=== PATIENT | female | born 1995 | race Caucasian/White ===

== ENCOUNTER 2020-07-05 12:18 | Emergency (ER) | payer OTHER ==
[2020-07-05 12:44] VITALS: BP 109/58; PULSE 88; TEMP 98.1; BMI 27.3
[2020-07-05 13:35] LABS: URINE APPEARANCE CLEAR; URINE BILIRUBIN NEGATIVE (NEGATIVE); URINE COLOR YELLOW; URINE GLUCOSE (UA) NEGATIVE (NEGATIVE); URINE KETONE NEGATIVE (NEGATIVE); URINE LEUK ESTERASE NEGATIVE (NEGATIVE); URINE NITRITE NEGATIVE (NEGATIVE); URINE PROTEIN NEGATIVE (NEGATIVE); URINE UROBILINOGEN 0.2 mg/dL (0.2-1.0)
[2020-07-05 13:57] LABS: BASO % 0.8 % (0-2.0); HEMATOCRIT 35.2 % (32.4-45.2); LYMPH % 26.4 % (8-40); MCH 33.6 pg (25.7-33.7); MCHC 34.1 g/dl (32.0-36.0); MEAN CELL VOLUME 98.4 fl (80-96); MEAN PLT VOLUME 8.4 fl (7.5-11.1); MONO % 7.9 % (3.8-10.2); NEUT % 62.9 % (42.8-82.8); PLATELET COUNT 254 K/MM3 (134-434); RBC 3.57 M/mm3 (3.60-5.2); RDW 13.2 % (11.6-15.6); WHITE BLOOD COUNT 12.9 K/mm3 (4.0-10.0)
[2020-07-05 14:30] LABS: BLOOD UREA NITROGEN 9.6 mg/dL (7-18); CALCIUM 8.3 mg/dL (8.5-10.1)
[2020-07-05 14:31] LABS: ALBUMIN 3.6 g/dl (3.4-5.0)
[2020-07-05 14:34] LABS: CREATININE 0.4 mg/dL (0.55-1.3)
[2020-07-05 14:35] LABS: BILIRUBIN,TOTAL 0.2 mg/dL (0.2-1)
[2020-07-05 14:36] LABS: TOT PROT 6.4 g/dl (6.4-8.2)
== END 2020-07-05 15:59 | disposition home or self-care (01) ==
LOC: JER 12:18
DX: O20.0 Threatened abortion (principal); O26.851 Spotting complicating pregnancy, first trimester; O41.8X10 Other specified disorders of amniotic fluid and membranes, first trimester, not applicable or unspecified; Z3A.01 Less than 8 weeks gestation of pregnancy
CPT/HCPCS: 36415; 76817-TC; 80053; 81003; 84702; 85025; 86850; 86900; 86901; 87086; 99284-25

== ENCOUNTER 2020-08-07 05:02 | Emergency (ER) | payer OTHER ==
[2020-08-07 05:12] VITALS: TEMP 98.8; BMI 26.4
[2020-08-07] MEDS ORDERED: KETOROLAC TROMETHAMINE 30 MG/1 ML VIAL IVPUSH ONE (05:50)
[2020-08-07] MEDS ORDERED: KETOROLAC TROMETHAMINE 30 MG/1 ML VIAL ONE (05:53)
[2020-08-07 06:12] LABS: BASO % 0.3 % (0-2.0); HEMATOCRIT 36.5 % (32.4-45.2); HEMOGLOBIN 12.3 GM/dL (10.7-15.3); LYMPH % 13.2 % (8-40); MCH 32.4 pg (25.7-33.7); MCHC 33.6 g/dl (32.0-36.0); MEAN CELL VOLUME 96.4 fl (80-96); MONO % 5.6 % (3.8-10.2); NEUT % 79.9 % (42.8-82.8); PLATELET COUNT 244 10^3/uL (134-434); RBC 3.79 M/mm3 (3.60-5.2); RDW 13.1 % (11.6-15.6); WHITE BLOOD COUNT 18.8 K/mm3 (4.0-10.0)
[2020-08-07 06:33] LABS: CALCIUM 8.3 mg/dL (8.5-10.1)
[2020-08-07 06:34] LABS: ALBUMIN 3.7 g/dl (3.4-5.0); BLOOD UREA NITROGEN 9.2 mg/dL (7-18)
[2020-08-07 06:37] LABS: CREATININE 0.5 mg/dL (0.55-1.3)
[2020-08-07 06:39] LABS: BILIRUBIN,TOTAL 0.2 mg/dL (0.2-1); TOT PROT 6.6 g/dl (6.4-8.2)
[2020-08-07] MEDS ORDERED: ACETAMINOPHEN 325 MG TABLET (FP) PO ONE (06:44)
[2020-08-07] MEDS ORDERED: ACETAMINOPHEN 325 MG TABLET (FP) ONE (06:48)
[2020-08-07] MEDS ORDERED: SODIUM CHLORIDE 1,000 ML IV STA (07:16)
[2020-08-07] MEDS ORDERED: morphine CARPU-JECT 2 MG/1 ML DISP.SYRIN IVPUSH ONE (09:24)
[2020-08-07 09:26] LABS: EPI CELLS 17 /uL (0-25.1); HYALINE CASTS 3 /uL (0-3.1); PH,URINE 5.5 (5.0-8.0); URINE APPEARANCE CLEAR; URINE BACTERIA 81 /uL (0-1359); URINE BILIRUBIN NEGATIVE (NEGATIVE); URINE COLOR YELLOW; URINE GLUCOSE (UA) NEGATIVE (NEGATIVE); URINE KETONE NEGATIVE (NEGATIVE); URINE LEUK ESTERASE NEGATIVE (NEGATIVE); URINE NITRITE NEGATIVE (NEGATIVE); URINE PROTEIN TRACE (NEGATIVE); URINE RBC 122 /uL (0-23.9); URINE UROBILINOGEN 0.2 mg/dL (0.2-1.0); URINE WBC 4 /uL (0-25.8)
[2020-08-07] MEDS ORDERED: MORPHINE SULFATE 2 MG/ML VIAL ONE (09:27)
[2020-08-07] MEDS ORDERED: ONDANSETRON 4 MG/2 ML VIAL ONE (09:40)
[2020-08-07] MEDS ORDERED: ONDANSETRON 4 MG/2 ML VIAL IVPUSH ONE (09:40)
[2020-08-07 10:34] LABS: BASO % 0.2 % (0-2.0); HEMATOCRIT 36.2 % (32.4-45.2); LYMPH % 5.2 % (8-40); MCH 32.5 pg (25.7-33.7); MEAN CELL VOLUME 98.2 fl (80-96); MEAN PLT VOLUME 7.9 fl (7.5-11.1); MONO % 2.4 % (3.8-10.2); NEUT % 92.2 % (42.8-82.8); PLATELET COUNT 213 10^3/uL (134-434); RBC 3.69 M/mm3 (3.60-5.2); RDW 13.6 % (11.6-15.6); WHITE BLOOD COUNT 17.9 K/mm3 (4.0-10.0)
[2020-08-07 11:01] LABS: ANISOCYTOSIS 1+; MACROCYTOSIS 1+; PLATELET ESTIMATE NORMAL
[2020-08-07 12:09] VITALS: BP 107/71; PULSE 66
[2020-08-07] MEDS ORDERED: ACETAMINOPHEN WITH CODEINE 300MG/30MG TABLET PO ONE (12:18)
[2020-08-07] MEDS ORDERED: ACETAMINOPHEN WITH CODEINE 300MG/30MG TABLET ONE (12:31)
== END 2020-08-07 12:43 ==
LOC: JER 05:02
PROC: 3E0333Z Introduction of Anti-inflammatory into Peripheral Vein, Percutaneous Approach (ICD-10-PCS; principal; 2020-08-07)
PROC: 3E033NZ Introduction of Analgesics, Hypnotics, Sedatives into Peripheral Vein, Percutaneous Approach (ICD-10-PCS; 2020-08-07)
PROC: 3E033GC Introduction of Other Therapeutic Substance into Peripheral Vein, Percutaneous Approach (ICD-10-PCS; 2020-08-07)
PROC: 3E0337Z Introduction of Electrolytic and Water Balance Substance into Peripheral Vein, Percutaneous Approach (ICD-10-PCS; 2020-08-07)
DX: O04.80 (Induced) termination of pregnancy with unspecified complications (principal)
CPT/HCPCS: 36415; 76830-TC; 80053; 81003; 84702; 85025; 86850; 86900; 86901; 87086; 99284-25

== ENCOUNTER 2023-03-29 03:55 | Day surgery (SDC) | payer OTHER ==
[2023-03-25 15:32] VITALS: BMI 27.9
[2023-03-29] MEDS ORDERED: IBUPROFEN 400 MG TABLET (FP) PO PRN (06:41)
[2023-03-29] MEDS ORDERED: oxyCODONE HCL 5 MG TABLET PO PRN ×2 (06:41→12:21)
[2023-03-29] MEDS ORDERED: ACETAMINOPHEN 325 MG TABLET (FP) PO PRN (06:41)
[2023-03-29] MEDS ORDERED: MIDAZOLAM HCL 2 MG/2 ML SINGLE DOSE VIAL ONE (11:09)
[2023-03-29] MEDS ORDERED: PROPOFOL 20 ML ONE (11:09)
[2023-03-29] MEDS ORDERED: LIDOCAINE HCL/PF 2% SDV 5ML VIAL ONE (11:09)
[2023-03-29] MEDS ORDERED: ceFAZolin SODIUM 1 GM VIAL ONE (11:32)
[2023-03-29] MEDS ORDERED: DEXAMETHASONE SOD PHOSPHATE 4 MG/1 ML VIAL ONE (11:32)
[2023-03-29] MEDS: ceFAZolin SODIUM 1 GM VIAL IVPB ONE (11:35)
[2023-03-29] MEDS ORDERED: ONDANSETRON 4 MG/2 ML VIAL ONE (11:48)
[2023-03-29] MEDS ORDERED: KETOROLAC TROMETHAMINE 30 MG/1 ML VIAL ONE (11:48)
[2023-03-29] MEDS ORDERED: ONDANSETRON 4 MG/2 ML VIAL IVPUSH PRN (12:21)
[2023-03-29] MEDS ORDERED: PROMETHAZINE HCL 25 MG/1 ML VIAL IVPB PRN (12:21)
[2023-03-29] MEDS: ACETAMINOPHEN 1000 MG/100 ML BAG IVPB ONE (12:21)
[2023-03-29] MEDS ORDERED: LACTATED RINGERS SOLUTION 1,000 ML IV SCH (12:30)
[2023-03-29] MEDS ORDERED: ACETAMINOPHEN INJECTION 100 ML IVPB ONE (12:39)
[2023-03-29 13:53] VITALS: RESP 18
[2023-03-29 14:41] VITALS: BP 108/58; PULSE 62; TEMP 98.4
== END 2023-03-29 14:30 | disposition home or self-care (01) ==
LOC: JASU-SURG 03:55
PROVIDERS: ATTEND Obstetrics & Gynecology
PROC: 0UB98ZZ Excision of Uterus, Via Natural or Artificial Opening Endoscopic (ICD-10-PCS; principal; 2023-03-29 11:00)
DX: N84.0 Polyp of corpus uteri (principal)
CPT/HCPCS: 81025; 88305-TC; 94760; J0131